=== PATIENT | female | born 1965 | race Caucasian/White ===

== ENCOUNTER 2018-10-03 14:10 | Emergency (ER) | payer OTHER ==
[~2018-10-03] VITALS: Ht 165.1 cm; Wt 57.2 kg
[~2018-10-03 14:10] MED LIST: CRESTOR10 MG PO; FERROUS SULFAT140 MG PO; MAGNESIUM OXID400 MG PO; PERCOCET 7.5-31 EACH PO; PRISTIQ ER50 MG PO; VITAMIN B-121000 MC2 SL; VITAMIN D400 UNIT PO; VITAMIN E400 UNI2 PO; ZOMIG2.5 MG PO
--- OUTSIDE RECORDS SUMMARY | 2018-10-03 14:13 | XMS REPORT | Continuity of Care Document ---
Author Author [facility] Organization [facility] Address Unknown Phone Unavailable Care Team Providers Care Client Coordinator Name Role Phone [facility] Unavailable Unavailable Problems Problem Status Onset Date Classification Date Reported Comments Source IRRITABLE BOWEL SYNDROME, ABDOMINAL PAIN Active 03/23/2012 [facility] DDC-NEW CLINIC VISIT Active 03/19/2012 [facility] 953.2 - LUMBAR ROOT INJ Active 01/22/2012 [facility] [place] Medications Medication Details Route Status Patient Instructions Ordering Provider Order Date Source Zomig Substitution Allowed Active Davalos 03/23/2012 [facility] magnesium gluconate 250 mg oral tablet Substitution Allowed Active 03/23/2012 [facility] Allergies, Adverse Reactions, Alerts Substance Category Reaction Severity Reaction type Status Date Reported Comments Source Elavil drug allergy Allergy Active [facility] Immunizations No Data Provided for This Section Results No Data Provided for This Section Pathology Reports No Data Provided for This Section Diagnostic Reports No Data Provided for This Section Consultation Notes No Data Provided for This Section Discharge Summaries No Data Provided for This Section History and Physicals No Data Provided for This Section Vital Signs Vital Sign Value Date Comments Source Heart Rate 67 03/23/2012 [facility] Systolic (mm Hg) 109 03/23/2012 [facility] Diastolic (mm Hg) 80 03/23/2012 [facility] Height 165.10 cm 03/23/2012 [facility] Weight 56.136 03/23/2012 [facility] Encounters Location Location Details Encounter Type Encounter Number Reason For Visit Attending Provider ADM Date DC Date Status Source [facility] Outpatient [id number] IRRITABLE BOWEL SYNDROME, ABDOMINAL PAINRLQ AND LLQ JOSE M ANOOP 06/01/2012 Active [facility] Out[facility] [id number] DDC-NEW CLINIC VISIT JOSE M DAVALOS Active [facility] OD [id number] 953.2 - LUMBAR ROOT INJ BEATRIZ THURSDAY Cancel [facility] [place] Procedures No Data Provided for This Section Assessment and Plan No Data Provided for This Section Plan of Care No Data Provided for This Section Social History No Data Provided for This Section Family History No Data Provided for This Section Advance Directives No Data Provided for This Section Functional Status No Data Provided for This Section
--- OUTSIDE RECORDS SUMMARY | 2018-10-03 14:13 | XMS REPORT | CCD ---
Author Author Auto Generated Organization [facility] Address Unknown Phone Unavailable Care Team Providers Care Stencil Maker Name Role Phone Shankar Chinchilla RP Allergies, Adverse Reactions, Alerts Substance Reaction Status Elavil Active Medications Medication Instructions Start Date End Date Status Zomig Substitution Allowed 03/23/2012 Ordered magnesium gluconate Substitution Allowed 03/23/2012 Ordered 250 mg oral tablet Vital Signs Most recent to oldest [Reference Range]: 1 Height 165.10 cm (03/23/2012 08:48:00) Systolic Blood Pressure [90-140 mmHg] 109 mmHg (03/23/2012 08:48:00) Diastolic Blood Pressure [60-90 mmHg] 80 mmHg (03/23/2012 08:48:00) Peripheral Pulse Rate [60-100 bpm] 67 bpm (03/23/2012 08:48:00) Weight 56.136 kg (03/23/2012 08:48:00)
--- OUTSIDE RECORDS SUMMARY | 2018-10-03 14:13 | XMS REPORT | CCD ---
Author Author Auto Generated Organization [facility] Address Unknown Phone Unavailable Care Team Providers Care Network Liaison Name Role Phone Shankar Chinchilla RP Allergies, Adverse Reactions, Alerts Substance Reaction Status Elavil Active
[2018-10-03] MEDS ORDERED: SUMATRIPTAN SUCCINATE 6 MG/0.5 ML VIAL SC ONE (14:45)
[2018-10-03] MEDS ORDERED: ONDANSETRON HCL 4 MG ORAL DISINTEGRATING TAB PO ONE (15:00)
[2018-10-03] MEDS ORDERED: KETOROLAC TROMETHAMINE 30 MG/ML VIAL ONE ×2 (15:10→15:16)
[2018-10-03] MEDS ORDERED: PROMETHAZINE HCL (IM) 25 MG/ML VIAL ONE ×2 (15:11→15:16)
[2018-10-03] MEDS ORDERED: PROMETHAZINE 25MG/ NS 50ML (IV) IV ONE (15:30)
[2018-10-03] MEDS ORDERED: KETOROLAC TROMETHAMINE 30 MG/ML VIAL IV STA (15:39)
[2018-10-03] MEDS ORDERED: METHYLPREDNISOLONE SOD SUCC 125 MG/2ML VIAL ONE (15:40)
[2018-10-03] MEDS ORDERED: METHYLPREDNISOLONE SOD SUCC 125 MG/2ML VIAL IV ONE (15:45)
[2018-10-03] MEDS ORDERED: PROMETHAZINE 25MG/ NS 50ML (IV) IV NR (15:45)
[2018-10-03] MEDS ORDERED: BUTORPHANOL TARTRATE INJ 1 MG/ML VIAL IV NR (16:00)
[2018-10-03] MEDS ORDERED: MORPHINE SULFATE INJ 4 MG/ML INJ 1ML ONE (16:05)
[2018-10-03] MEDS ORDERED: MORPHINE SULFATE 5 MG/ML VIAL IV ONE (16:15)
[2018-10-03 16:24] VITALS: BP 119/69
[2018-10-03] MEDS ORDERED: MORPHINE SULFATE INJ 4 MG/ML INJ 1ML IV ONE (16:30)
== END 2018-10-03 16:30 | disposition home or self-care (01) ==
LOC: FSED 14:10
DX: G43.019 Migraine without aura, intractable, without status migrainosus (principal)
CPT/HCPCS: 99283; J1885; J2270 ×2; J2550; J2930; Q0162